=== PATIENT | female | born 1985 | race Caucasian/White ===

== ENCOUNTER 2017-07-17 22:59 | Emergency (ER) | payer OTHER, MEDICAID ==
[~2017-07-17] VITALS: Ht 165.1 cm; Wt 115.2 kg
[2017-07-17 23:13] VITALS: BP_SYST 115
[2017-07-17 23:41] LABS: BASOPHILS % (AUTO) 0.1 % (0.0-2.0); EOSINOPHILS # (AUTO) 0.1 K/uL (0.0-0.4); EOSINOPHILS % (AUTO) 0.5 % (0.0-4.0); HEMOGLOBIN 12.4 g/dL (12.0-16.0); LYMPHOCYTES # (AUTO) 2.3 K/uL (1.0-5.5); MEAN CORPUSCULAR HEMOGLOBIN 29 pg (27-31); MEAN CORPUSCULAR HGB CONC 34 % (32-36); MEAN CORPUSCULAR VOLUME 86 fL (79.0-98.0); MONOCYTES # (AUTO) 0.5 K/uL (0.0-1.0); MONOCYTES % (AUTO) 3.5 % (1.7-9.3); NEUTROPHILS # (AUTO) 11.6 K/uL (1.8-7.7); NEUTROPHILS % (AUTO) 79.9 % (40.0-70.0); PLATELET COUNT (AUTO) 321 K/uL (130-430); RED CELL DISTRIBUTION WIDTH 12.8 % (9.0-15.0); WHITE BLOOD COUNT (AUTO) 14.5 K/uL (4.8-10.8)
[2017-07-18 00:12] LABS: CALCIUM 9.2 mg/dL (8.4-11.0); CREATININE 0.52 mg/dL (0.55-1.30); POTASSIUM 3.4 mmol/L (3.5-5.1)
[2017-07-18 00:14] LABS: TOTAL BILIRUBIN 0.3 mg/dL (0.0-1.0)
[2017-07-18 00:34] LABS: BILIRUBIN,URINE NEGATIVE (NEGATIVE); BLOOD, URINE 1+ (NEGATIVE); CLARITY/URINE CLEAR (CLEAR); COLOR,URINE YELLOW (YELLOW); GLUCOSE,URINE NEGATIVE (NEGATIVE); KETONES,URINE NEGATIVE (NEGATIVE); LEUKOCYTE ESTERASE ,URINE 1+ (NEGATIVE); NITRITE, URINE NEGATIVE (NEGATIVE); PROTEIN URINE NEGATIVE (NEGATIVE); UROBILINOGEN,URINE 0.2 (0.2-1.0)
[2017-07-18 00:38] LABS: RBC,URINE 0-3 /HPF (0-3)
[2017-07-18 00:39] LABS: BACTERIA,URINE MANY /HPF (None Seen)
[2017-07-18 01:14] VITALS: BP_SYST 117
== END 2017-07-18 01:14 | disposition home or self-care (01) ==
LOC: SED 22:59
DX: O23.42 Unspecified infection of urinary tract in pregnancy, second trimester (principal); Z3A.19 19 weeks gestation of pregnancy
CPT/HCPCS: 36415; 76805-TC; 80053; 81000-TC; 81025; 85025; 86900; 86901; 99285

== ENCOUNTER 2017-09-10 14:00 | Observation (INO) | payer OTHER, MEDICAID ==
[~2017-09-10] VITALS: Ht 165.1 cm; Wt 115.2 kg
[2017-09-10 15:16] LABS: BILIRUBIN,URINE NEGATIVE (NEGATIVE); BLOOD, URINE 2+ (NEGATIVE); CLARITY/URINE HAZY (CLEAR); COLOR,URINE YELLOW (YELLOW); GLUCOSE,URINE NEGATIVE (NEGATIVE); KETONES,URINE NEGATIVE (NEGATIVE); LEUKOCYTE ESTERASE ,URINE TRACE (NEGATIVE); NITRITE, URINE NEGATIVE (NEGATIVE); PH,URINE 6.5 (5.0-8.0); PROTEIN URINE NEGATIVE (NEGATIVE); UROBILINOGEN,URINE 0.2 (0.2-1.0)
[2017-09-10 15:30] LABS: BACTERIA,URINE FEW /HPF (None Seen); MUCUS,URINE None Seen /LPF (None Seen); RBC,URINE 0-3 /HPF (0-3)
[2017-09-10] MEDS: NITROFURANTOIN MONOHYD/M-CRYST 100 MG CAPSULE PO ONE (16:15)
== END 2017-09-10 16:30 | disposition home or self-care (01) ==
LOC: SPU 14:00
PROVIDERS: ADMIT Specialist; ATTEND Specialist
DX: O26.852 Spotting complicating pregnancy, second trimester (principal); O26.892 Other specified pregnancy related conditions, second trimester; R10.9 Unspecified abdominal pain; Z3A.27 27 weeks gestation of pregnancy
CPT/HCPCS: 81000; 81002; G0378

== ENCOUNTER 2018-08-12 10:05 | Outpatient (CLI) | payer OTHER, MEDICAID | END 2018-08-12 20:31 | disposition home or self-care (01) | LOC: SRD 10:05 | PROVIDERS: ATTEND Family Medicine | DX: S92.511A Displaced fracture of proximal phalanx of right lesser toe(s), initial encounter for closed fracture (principal); M77.51 Other enthesopathy of right foot and ankle; X58.XXXA Exposure to other specified factors, initial encounter; Y93.89 Activity, other specified; Y92.89 Other specified places as the place of occurrence of the external cause; Y99.8 Other external cause status ==

== ENCOUNTER 2018-09-29 09:09 | Emergency (ER) | payer MEDICAID, OTHER ==
[~2018-09-29] VITALS: Ht 165.1 cm; Wt 104.3 kg
[2018-09-29 09:15] VITALS: BP_SYST 116
[2018-09-29] MEDS ORDERED: cefTRIAXone 1 GM VIAL IM ONE (12:15)
[2018-09-29] MEDS ORDERED: PHENAZOPYRIDINE HCL 100 MG TABLET PO ONE (12:15)
[2018-09-29] MEDS ORDERED: IBUPROFEN 800 MG TABLET PO ONE (12:15)
[2018-09-29] MEDS ORDERED: cefTRIAXone 1 GM in LIDOCAINE 1%, 20 ML MDV 2.1 ML IM ONE (12:30)
[2018-09-29] MEDS ORDERED: LIDOCAINE 1%, 20 ML MDV 20 ML ONE (12:33)
[2018-09-29 13:08] VITALS: BP_SYST 121
== END 2018-09-29 13:12 | disposition home or self-care (01) ==
LOC: SED 09:09
DX: N39.0 Urinary tract infection, site not specified (principal); Z90.49 Acquired absence of other specified parts of digestive tract
CPT/HCPCS: 81002; 81025; 96372; 99283; J0696; J2001

== ENCOUNTER 2021-04-07 22:41 | Emergency (ER) | payer OTHER ==
[~2021-04-07] VITALS: Ht 165.1 cm; Wt 102.1 kg
[2021-04-07 22:55] VITALS: BP_SYST 112
--- NOTE | 2021-04-07 23:08 | NUR ---
PATIENT TRIAGED AND AWAITING IN WAITING ROOM. VSS. NO VISIBLE DISTRESS NOTED. NO ACTIVE BLEEDING TO LEFT FOOT.
--- NOTE | 2021-04-08 00:30 | NUR ---
Patient to ER bed [facility]ALL[facility] to [facility] for evaluation. Side rails up. Report given to QI BENAVIDES.
--- NOTE | 2021-04-08 00:45 | NUR ---
PATIENT AAOX4 AND AMBULATORY C/O LEFT HEEL SORENESS AFTER STEPING ON A NAIL AT HOME. 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 PT REMOVED NAIL. NO BLEEDING NOTED. VSS. CURRENTLY STATING 3/10 ON PAIN SCALE.
--- NOTE | 2021-04-08 00:47 | NUR ---
DR. RUIZ AT BEDSIDE FOR EVALUATION.
[2021-04-08] MEDS: DIPH-TET-PERTUS Vaccine 0.5 ML VIAL (ADACEL) I.M. ONE (01:05)
[2021-04-08] MEDS ORDERED: CIPR500T5 PO (01:37)
[2021-04-08 01:43] VITALS: BP_SYST 112
--- NOTE | 2021-04-08 01:44 | NUR ---
Patient given written and verbal discharge instructions and verbalizes understanding. DR. NIKKI GRAHAM MD discussed with patient the results and treatment provided. Patient in stable condition. ID arm band removed. Patient educated on pain management and to follow up with PMD. Pain Scale 0/10. Opportunity for questions provided and answered. Medication side effect fact sheet provided.
--- NOTE | 2021-04-08 01:44 | NUR ---
RX OF CIPRO GIVEN AND SENT TO PHARMACY
== END 2021-04-08 01:43 | disposition home or self-care (01) ==
LOC: SED 22:41
DX: S91.332A Puncture wound without foreign body, left foot, initial encounter (principal); Z79.899 Other long term (current) drug therapy; W45.0XXA Nail entering through skin, initial encounter; Y93.89 Activity, other specified; Y92.89 Other specified places as the place of occurrence of the external cause; Y99.8 Other external cause status
CPT/HCPCS: 90715; 99283

== ENCOUNTER 2022-09-25 17:39 | Emergency (ER) | payer OTHER ==
[~2022-09-25] VITALS: Ht 165.1 cm; Wt 101.6 kg
[~2022-09-25 17:39] MED LIST: CIPR500T5 PO
[2022-09-25 17:42] VITALS: BP_SYST 109
--- NOTE | 2022-09-25 20:56 | NUR ---
ATTEMPTED TO ASSES PATIENT AND PROVIDE DISCHARGE INSTRUCTIONS. PT NOT FOUND IN WAITING ROOM.
--- NOTE | 2022-09-25 20:56 | NUR ---
Zehra good in [facility] - 09/26/22 at 0401 by [email or web address] PT LEFT WITHOUT DISCHARGE INSTRUCTIONS.
== END 2022-09-25 20:56 | disposition home or self-care (01) ==
LOC: SED 17:39
DX: J06.9 Acute upper respiratory infection, unspecified (principal); R51.9 Headache, unspecified; Z79.899 Other long term (current) drug therapy
CPT/HCPCS: 70450-TC; 71046-TC; 76376; 81025; 99284

== ENCOUNTER 2024-03-19 09:27 | Emergency (ER) | payer OTHER ==
[~2024-03-19] VITALS: Ht 165.1 cm; Wt 104.3 kg
[2024-03-19 09:37] VITALS: BP_SYST 110; PULSE 76; RESP 16; TEMP 97.8; O2SAT 99
[2024-03-19 10:21] LABS: BASOPHILS % (AUTO) 0.5 % (0.0-2.0); EOSINOPHILS # (AUTO) 0.1 K/uL (0.0-0.4); EOSINOPHILS % (AUTO) 1.3 % (0.0-4.0); HEMATOCRIT 35.9 % (36-48); HEMOGLOBIN 11.8 g/dL (12.0-16.0); LYMPHOCYTES # (AUTO) 2.4 K/uL (1.0-5.5); LYMPHOCYTES % (AUTO) 35.5 % (20.5-51.5); MEAN CORPUSCULAR HEMOGLOBIN 26 pg (27-31); MEAN CORPUSCULAR HGB CONC 33 % (32-36); MEAN CORPUSCULAR VOLUME 80 fL (79.0-98.0); MONOCYTES # (AUTO) 0.4 K/uL (0.0-1.0); MONOCYTES % (AUTO) 5.6 % (1.7-9.3); NEUTROPHILS # (AUTO) 3.8 K/uL (1.8-7.7); NEUTROPHILS % (AUTO) 57.1 % (40.0-70.0); PLATELET COUNT (AUTO) 349 K/uL (130-430); RED BLOOD CELL COUNT(AUTO) 4.51 MIL/uL (4.2-6.2); RED CELL DISTRIBUTION WIDTH 13.5 % (9.0-15.0); WHITE BLOOD COUNT (AUTO) 6.7 K/uL (4.8-10.8)
[2024-03-19] MEDS: KETOROLAC TROMETHAMINE 30 MG VIAL IM ONE (10:35)
[2024-03-19] MEDS: LIDOCAINE PATCH 5% 1 EA TP ONE (10:36)
[2024-03-19] MEDS: CYCLOBENZAPRINE HCL 10 MG TABLET (FLEXERIL) PO ONE (10:36)
[2024-03-19 10:38] LABS: ALBUMIN 3.5 g/dL (3.4-4.8); CALCIUM 8.4 mg/dL (8.4-11.0); CREATININE 0.77 mg/dL (0.55-1.30); POTASSIUM 3.5 mmol/L (3.5-5.1); TOTAL BILIRUBIN 0.3 mg/dL (0.0-1.0); TOTAL PROTEIN, SERUM 6.9 g/dL (6.4-8.3)
[2024-03-19 11:11] LABS: BILIRUBIN,URINE NEGATIVE (NEGATIVE); BLOOD, URINE 1+ (NEGATIVE); CLARITY/URINE CLEAR (CLEAR); COLOR,URINE YELLOW (YELLOW); GLUCOSE,URINE NEGATIVE (NEGATIVE); KETONES,URINE NEGATIVE (NEGATIVE); LEUKOCYTE ESTERASE ,URINE NEGATIVE (NEGATIVE); NITRITE, URINE NEGATIVE (NEGATIVE); PH,URINE 6.5 (5.0-8.0); PROTEIN URINE NEGATIVE (NEGATIVE); UROBILINOGEN,URINE 0.2 (0.2-1.0)
[2024-03-19 11:14] LABS: HCG,QUAL RESULT NEGATIVE (NEGATIVE)
[2024-03-19 11:25] LABS: BACTERIA,URINE RARE /HPF (None Seen); WBC,URINE NONE SEEN /HPF (0-3)
[2024-03-19] MEDS: MORPHINE 4 MG INJ. 4 MG/ML VIAL IM ONE (12:14)
[2024-03-19] MEDS ORDERED: HYDR-3927 PO (13:20)
[2024-03-19 13:29] VITALS: BP_SYST 115; PULSE 71; RESP 18; TEMP 97.6; O2SAT 98
== END 2024-03-19 13:25 | disposition home or self-care (01) ==
LOC: SED 09:27
DX: M51.26 Other intervertebral disc displacement, lumbar region (principal); R10.32 Left lower quadrant pain; Z79.899 Other long term (current) drug therapy; Z79.2 Long term (current) use of antibiotics
CPT/HCPCS: 99285; 72131; 80053; 81001; 84703; 83690; 85025; 36415; 74176; 81025; 96372; J1885; J2270; 81000; 81015